=== PATIENT | female | born 1985 | race Native Hawaiian/Other Pacific Islander ===

== ENCOUNTER 2017-01-13 18:43 | Emergency (ER) | payer OTHER ==
[2017-01-13] MEDS ORDERED: Lactated Ringer's 1,000 ML IV SCH (19:45)
[2017-01-13 19:52] VITALS: BMI 26.4
--- NOTE | 2017-01-13 19:59 | OBHP ---
Datetime: 01/13/2017 19:50 IP Adm Impression: , intrauterine IP Chief Complaint Other: cramping Admit Comment, IP Provider: at 35+weeks twins came with c/o cramping from the morning and back pain. pt c/o difficulty urination. obhx primi pmh denies med pnv all nkda psh de soch den ve closed a/p at 35+weeks r/o uti r/o ctxs ua npo/ivf cont woody and efm cont close observation Pelvic Type - PN: Adequate Extremities - PN: Normal Abdomen - PN: Normal Back - PN: Normal Breast - PN: Normal Lungs - PN: Normal Heart - PN: Normal Thyroid - PN: Normal Neurologic - PN: Normal HEENT - PN: Normal General - PN: Normal Contraction Comments Provider: occ Comments, ACOG Physical Exam: gravid,non tender ext no edema,no calf ten ve closed/th/-3 Vital Signs Provider: Reviewed; Within Normal Limits Dilatation, Provider: 0 Effacement, Provider: 0 Station, Provider: -3 Genitourinary Exam: Normal DTRs - PN: Normal
[2017-01-13 20:18] LABS: URINE BILIRUBIN NEGATIVE (NEGATIVE); URINE BLOOD NEGATIVE (NEGATIVE); URINE COLOR Colorless (YELLOW); URINE GLUCOSE (UA) NORMAL (Normal); URINE KETONE NEGATIVE (NEGATIVE); URINE LEUKOCYTE ESTERASE NEG Leu/uL (Negative); URINE PROTEIN NEGATIVE (NEGATIVE); URINE UROBILINOGEN NORMAL mg/dL (0.2-1.0); WBC URINE < 1 /hpf (0-5)
--- NOTE | 2017-01-13 20:26 | OBHP ---
Datetime: 01/13/2017 19:50 Admit Comment, IP Provider: at 35+weeks twins came with c/o cramping from the morning and back pain. pt c/o difficulty urination. obhx primi pmh denies med pnv all nkda psh de soch den ve closed a/p at 35+weeks r/o uti r/o ctxs ua npo/ivf cont woody and efm cont close observation 20.30 ua neg ve closed iv hyration given plan dc home ptl gven po hyration f/u in [facility] in 2-3 days
--- NOTE | 2017-01-13 20:28 | OBDCSUM ---
Datetime: 01/13/2017 20:24 Discharged to, Provider: Home Follow up at, Provider: 2-3 Disch Instr Diet: Regular Follow up in weeks, Provider: clinic Disch Activity Restrictions: Nothing in vagina - [place], tampons, douche Discharge Comment, Provider: plan dc home ptl gven po hyration f/u in [facility] in 2-3 days Discharge Diagnosis Prov Other: 36weeks ctxs nst
[2017-01-14 00:56] VITALS: BP 113/73; PULSE 86; TEMP 98.3
== END 2017-01-13 20:54 | disposition home or self-care (01) ==
LOC: C.EROB 18:43
DX: O26.893 Other specified pregnancy related conditions, third trimester (principal); Z3A.35 35 weeks gestation of pregnancy
CPT/HCPCS: 81001; 99283; J7120

== ENCOUNTER 2017-01-19 15:15 | Emergency (ER) | payer OTHER ==
--- NOTE | 2017-01-19 16:30 | OBHP ---
Datetime: 01/19/2017 16:17 IP Adm Impression: , intrauterine ; No Active Labor IP Chief Complaint Other: Pelvic pressure IP Adm Impression Other: Twin IP Admit Plan: Observation/Evaluation; Discharge home Admit Comment, IP Provider: 31yo with twin at 36wks. She reports here today c/o pelvi c pressure. She denies any VB or LOF. TOCO- Occasional FHR- Category 1, Cx- 0/0/-3 Assessment: Twin at 36wks Pelvic Pressure NST- Reactive. Plan: D/c Home F/U with OB Clinic. Labor instructions given Pelvic Type - PN: Adequate Extremities - PN: Normal Abdomen - PN: Normal Back - PN: Normal Breast - PN: Normal Lungs - PN: Normal Heart - PN: Normal Thyroid - PN: Normal Neurologic - PN: Normal HEENT - PN: Normal General - PN: Normal Presentation-Admit: vertex/vertex FHR - Baseline A Provider: 132/142 Membranes, Provider: Intact Contraction Comments Provider: Occasional Gestation - Est Wks by US: 36.0 EGA AdmitDate IP: 36.3 Vital Signs Provider: Reviewed IP Chief Complaint: Maternal discomfort NICHD Variability Prov Fetus A: Moderate 6-25bpm NICHD Accel Fetus A IP Provider: 15X15 FHR Category Provider Fetus A: Category I NICHD Decel Fetus A IP Provider: None Dilatation, Provider: 0 Effacement, Provider: 0 Station, Provider: -3 Genitourinary Exam: Normal DTRs - PN: Normal
[2017-01-20 00:31] VITALS: BP 115/84; PULSE 97; RESP 18; TEMP 97.2; O2SAT 98
== END 2017-01-19 16:05 | disposition home or self-care (01) ==
LOC: C.EROB 15:15
DX: O26.893 Other specified pregnancy related conditions, third trimester (principal); R10.2 Pelvic and perineal pain; Z3A.36 36 weeks gestation of pregnancy

== ENCOUNTER 2017-01-20 18:56 | Emergency (ER) | payer OTHER ==
--- NOTE | 2017-01-20 20:55 | OBHP ---
Datetime: 01/20/2017 20:21 IP Adm Impression: , intrauterine IP Chief Complaint Other: Frequent urination IP Adm Impression Other: Twin gestation IP Admit Plan: Discharge home Admit Comment, IP Provider: 31 y.o. , LMP 05/09/16, YAYO 02/13/17, EGA 36w 4d confirmed by sono 08/06/16 at 13w 4d, twin gestation (di/di); presents with maternal c/o frequent urination " I pee small a sandra every 10 minutes". "I've been holding it since this morning". (+) AFM x 2; denies LOF, VB, c tx. course: [facility] - Di/Di twin gestation. Transient hyperthyroid in first trimestre; resolv ed in second trimestre - never placed on meds. Normal ECHO x 2. Abnormal GCT 156; normal 3 hr G TT 86/166/130/142. Anemic - not on iron. 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 x 3 years. 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 Fam Hx: Mother alive 60 y.o. Father alive 66 y.o. both; no med issues. No known fam h/o cancer P.E.: as above. Mildly obese in discomfort, NAD. Awake, alert, oriented to time, person and plac e. Assessment: 31 y.o. P0, twin gestation. Once in Ob-ED, patient voided approx 25 cc, water-like paul ar urine. Asher catheterization performed to check post void residual (PVR): 10 cc obtained. For dura tion of Ob-ED evaluation, Asher was left in situ - total volume 200cc over 1.25 hours. Patient had s ensation to have a bowel movement: no evacuation. Category 1 tracing x 2 (the one deceleration noted for Fetus B - baseline 140 bpm was at time of insertion of catheter, positional; did not recur). Fe gretchen presentation is ceph/ceph. Patient desires vaginal delivery. To this end, options discussed inc luded: leave Asher in situ overnight - patient has appointment at 0900 hours 01/21/17 Mary malave - she desires to change her OB provider. At time of visit, Asher can be removed and further manag ement determined. Patient very reluctant to having indwelling Asher overnight. Patient insists that she is able to void, it's just very frequent and in small amounts, and bothersome. Patient was reass ured that in light of no significant PVR, there is no urinary retention, and what she is experiencing is the result of the multi- gestation. Patient in better spirits. Patient is clinically stabl e. Plan: 1) Discharge home 2) Reviewed S/S labor Pelvic Type - PN: Adequate Extremities - PN: Normal Abdomen - PN: Normal Breast - PN: Not Done Lungs - PN: Normal Heart - PN: Normal Thyroid - PN: Normal Neurologic - PN: Normal HEENT - PN: Normal General - PN: Normal Presentation- Admit Other: Vertex Presentation-Admit: Vertex FHR - Baseline A Provider: 140 Contraction Comments Provider: irregular Comments, ACOG Physical Exam: Abdomen: gravid. Soft. Extremities: 2+ pitting pedal edema bilaterally All other systems reviewed and are negative Gestation - Est Wks by US: 36w 4d IP Hx Assessment: The History has been Reviewed and is Current EGA AdmitDate IP: 36.4 IP Chief Complaint: Maternal discomfort NICHD Variability Prov Fetus A: Moderate 6-25bpm NICHD Accel Fetus A IP Provider: 15X15 FHR Category Provider Fetus A: Category I NICHD Decel Fetus A IP Provider: None Dilatation, Provider: 2 Effacement, Provider: 30 Station, Provider: -1 Genitourinary Exam: Normal DTRs - PN: Not Done
[2017-01-21 00:55] VITALS: BP 113/70; PULSE 99; TEMP 97
== END 2017-01-20 20:40 | disposition home or self-care (01) ==
LOC: C.EROB 18:56
DX: O26.893 Other specified pregnancy related conditions, third trimester (principal); R35.0 Frequency of micturition; Z3A.36 36 weeks gestation of pregnancy; O30.003 Twin pregnancy, unspecified number of placenta and unspecified number of amniotic sacs, third trimester

== ENCOUNTER 2017-01-21 10:44 | Inpatient (IN) | payer OTHER ==
[2017-01-21] MEDS ORDERED: Sodium Citrate/Citric Acid 15 ml Sol PO ONE (11:23)
[2017-01-21] MEDS ORDERED: cefOXitin IV 2 gm in Dextrose 2 GM/50 ML BAG IVPB ONE ×2 (11:23→12:02)
[2017-01-21] MEDS ORDERED: Lactated Ringer's 1,000 ML IV SCH (11:30)
--- NOTE | 2017-01-21 11:49 | OBADHP ---
Datetime: 01/21/2017 11:35 Admit Comment, IP Provider: chief compaint-contractions HPI 31 y.o. , LMP 05/09/16, YAYO 02/13/17, EGA 36w 5d confirmed by sono 08/06/16 at 13w 4d, twin g estation (di/di); presents with c/o contractions.states that she has had discomfort since the morning .Was seen by dr gorman initially and found to be 3-4 cm dilated and hnece transferred to [facility]. (+) AFM x 2; denies LOF, VB, ctx. course: [facility] - Di/Di twin gestation. Transient hyperthyroid in first trimestre; resolve d in second trimestre - never placed on meds. Normal ECHO x 2. Abnormal GCT 156; normal 3 hr GT T 86/166/130/142. Anemic - not on iron. 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 x 3 years. 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 Fam Hx: Mother alive 60 y.o. Father alive 66 y.o. both; no med issues. No known fam h/o cancer P.E.: as above. Mildly obese in discomfort, NAD. Awake, alert, oriented to time, person and plac e. FHT cat1 for both twin a and b Bedside scan -baby A vertex; baby B oblique with head in right lower quadrant Assessment: 31 y.o. at 36.5 wga with twin gestation in labor.Discussed with patient about the position of the twins.,discussed trial of labor versus elective primary csection for twins.Discussed possibility of emegrent csection with trial of labor especially with the presentation of baby b bein goblique.risks and benefits of ecah discussed with patient and her family in detail.Patient desires t o proceed with csection . -admit -see orders Pelvic Type - PN: Adequate Extremities - PN: Normal Abdomen - PN: Normal Back - PN: Normal Lungs - PN: Normal Heart - PN: Normal Neurologic - PN: Normal General - PN: Normal Presentation-Admit: vtx/oblique Contraction Comments Provider: irregular Gestation - Est Wks by US: 36.5 IP Hx Assessment: The History has been Reviewed and is Current Vital Signs Provider: Reviewed IP Chief Complaint: Uterine contractions FHR Category Provider Fetus A: cat 1 Dilatation, Provider: 3-4 Effacement, Provider: 80 Station, Provider: -2 Genitourinary Exam: Normal DTRs - PN: Normal EGA AdmitDate IP: 36.5 IP Adm Impression: , intrauterine ; Active labor IP Admit Plan: Admit to unit; Initiate Section protocol Datetime: 01/20/2017 20:21 IP Chief Complaint Other: Frequent urination IP Adm Impression Other: Twin gestation Breast - PN: Not Done Thyroid - PN: Normal HEENT - PN: Normal Presentation- Admit Other: Vertex FHR - Baseline A Provider: 140 Comments, ACOG Physical Exam: Abdomen: gravid. Soft. Extremities: 2+ pitting pedal edema bilaterally All other systems reviewed and are negative NICHD Variability Prov Fetus A: Moderate 6-25bpm NICHD Accel Fetus A IP Provider: 15X15 NICHD Decel Fetus A IP Provider: None Datetime: 01/19/2017 16:17 Membranes, Provider: Intact
[2017-01-21 11:51] LABS: BASO % 0.6 % (0.0-2.0); EOS % 0.1 % (0.0-4.0); HEMATOCRIT 27.5 % (34.0-47.0); LYMPH # 1.6 K/uL (1.0-4.3); LYMPH % 21.9 % (20.0-40.0); MEAN CELL VOLUME 74.4 fL (81.0-99.0); MEAN CORPUSCULAR HEMOGLOBIN 24.1 pg (27.0-31.0); MEAN CORPUSCULAR HGB CONC 32.4 g/dL (33.0-37.0); MEAN PLATELET VOLUME 7.7 fL (7.2-11.7); MONO # 0.4 K/uL (0.0-0.8); NRBC % 0.2 % (0.0-2.0); RED CELL DISTRIBUTION WIDTH 16.6 % (11.5-14.5); WHITE BLOOD COUNT 7.5 K/uL (4.8-10.8)
[2017-01-21 11:54] LABS: RBC URINE 2 /hpf (0-3); URINE BACTERIA MANY (<OCC); URINE BILIRUBIN NEGATIVE (NEGATIVE); URINE BLOOD 3+ (NEGATIVE); URINE COLOR Yellow (YELLOW); URINE GLUCOSE (UA) NORMAL (Normal); URINE KETONE NEGATIVE (NEGATIVE); URINE LEUKOCYTE ESTERASE 3+ Leu/uL (Negative); URINE PROTEIN NEGATIVE (NEGATIVE); URINE UROBILINOGEN NORMAL mg/dL (0.2-1.0); WBC URINE 15 /hpf (0-5)
[2017-01-21] MEDS ORDERED: Sodium Citrate/Citric Acid 15 ml Sol ONE (12:02)
[2017-01-21] MEDS ORDERED: Oxytocin 20 units in LR 2,000 ML IV ONE (12:03)
[2017-01-21] MEDS ORDERED: Morphine 1 mg/ml preservative-free Inj(Duramorph) ONE (12:15)
[2017-01-21 12:20] LABS: CHLORIDE 104 mmol/L (98-107); SODIUM 136 mmol/L (132-148)
[2017-01-21 12:22] LABS: BILIRUBIN,TOTAL 0.5 mg/dL (0.2-1.3); CARBON DIOXIDE 15 mmol/L (22-30); GFR AFRICAN-AMERICAN > 60
[2017-01-21 12:23] LABS: ALKALINE PHOSPHATASE 199 U/L (38-126); ALT/SGPT 26 U/L (9-52); AST/SGOT 23 U/L (14-36); BLOOD UREA NITROGEN 6 mg/dL (7-17); CALCIUM 9.4 mg/dl (8.6-10.4); GLUCOSE,RANDOM 69 mg/dL (65-105); TOTAL PROTEIN 6.2 g/dL (6.3-8.3)
[2017-01-21] MEDS ORDERED: Midazolam 2 MG/2 ML VIAL ONE ×2 (12:43→12:51)
[2017-01-21] MEDS ORDERED: Ketamine 50 mg/ml Inj (10 ml) ONE (12:57)
[2017-01-21] MEDS ORDERED: HYDROmorphone 0.5 mg/0.5 ml ISec IVP PRN ×2 (13:05→15:30)
[2017-01-21] MEDS ORDERED: DiphenhydrAMINE 50 mg/ml Inj IVP PRN (13:07)
[2017-01-21] MEDS ORDERED: Dexamethasone 4 mg/1 ml IVP PRN (13:39)
[2017-01-21] MEDS ORDERED: Oxycodone/Acetaminophen 5/325 mg Tab PO PRN (14:17)
--- NOTE | 2017-01-21 22:27 | OBDS ---
DELIVERY PERSONNEL Delivery Doctor: dr carlos Cedillo Nurse: Lisbeth tOero Skate Hop: Joshua Wayne RN Anesthesiologist: Aleksey Bansal MD MATERNAL INFORMATION Delivery Anesthesia: Spinal Medications in Delivery: pitocin 20 Estimated Blood Loss (ml): 700 Placenta Cultured: Yes Maternal Complications: Other Other Maternal Complications: twin Provider Comments: primary csection done ebl 700cc delivered a viable female infant and viable male infant fundal pedunculated fibroid noticed approx 3x5 cm size LABOR SUMMARY EDC: 02/13/2017 00:00 No. Babies in Womb: 2 Attempted: No Labor Anesthesia: None LABOR INFORMATION Onset of Labor: 01/21/2017 08:00 Oxytocin: N/A Group B Beta Strep: Negative Antibiotics # of Doses: 1 Antibiotics Time of Last Dose: 1200 Steroids Given: None Reason Steroids Not Administered: Not Applicable MEMBRANES Membranes Rupture Method: Artificial Rupture of Membranes: 01/21/2017 12:44 Length of Rupture (hrs): 0.02 Amniotic Fluid Color: Clear Amniotic Fluid Amount: Moderate Amniotic Fluid Odor: Normal STAGES OF LABOR Stage 3 hrs: 0 Stage 3 min: 1 Total Time in Labor hrs: 4 Total Time in Labor min: 46 VAGINAL DELIVERY Episiotomy: None Laceration Extension: N/A CSECTION DELIVERY Primary Indication: Multiple Gestation CSection Urgency: Emergency CSection Incidence: Primary Labor: Labor CSection Incision: Lower Uterine Transverse Uterine Closure: Double-layer closure BABY A INFORMATION Infant Delivery Date/Time: 01/21/2017 12:45 Method of Delivery: Born in Route : No : N/A Forceps: N/A Vacuum Extraction: N/A Shoulder Dystocia : No SHOULDER DYSTOCIA BABY A Infant Delivery Date/Time: 01/21/2017 12:45 PRESENTATION/POSITION BABY A Presentation: Cephalic Cephalic Presentation: Vertex Breech Presentation: N/A PLACENTA INFORMATION BABY A Placenta Delivery Time : 01/21/2017 12:46 Placenta Method of Delivery: Manual Removal Placenta Status: Delivered SCORES BABY A Heart Rate 1 min: >100 bpm Resp Effort 1 min: Good Cry Reflex Irritability 1 min: Cough or Sneeze or Pulls Away Muscle Tone 1 min: Active Motion Color 1 min: Body Thorofare, Extremities Blue Resuscitation Effort 1 min: Tactile Stimulation SCORE 1 MIN: 9 Heart Rate 5 min: >100 bpm Resp Effort 5 min: Good Cry Reflex Irritability 5 min: Cough or Sneeze or Pulls Away Muscle Tone 5 min: Active Motion Color 5 min: Body Thorofare, Extremities Blue SCORE 5 MIN: 9 INFANT INFORMATION BABY A Gestational Age at Delivery: 36.5 Gestational Status: Infant Outcome : Liveborn Condition : Stable Sex: Male IDENTIFICATION/MEDS BABY A ID Band Number: [id number] ID Band Location: Left Leg; Left Arm Sensor Applied: Yes Sensor Number: [id number] Sensor Location : Cord Clamp WEIGHT/LENGTH BABY A Birthweight (gms): 2270 Weight (lb): 5 Weight (oz): 0 Length Inches: 18.25 Infant Length cms: 46.4 CORD INFORMATION BABY A No. Cord Vessels: 3 Nuchal Cord : Around Neck x2, Loose Cord Blood Taken: Yes Infant Suction: Mouth; Nose ASSESSMENT BABY A Infant Complications: None Physical Findings at Delivery: Within Normal Limits Respirations: Appears Normal Benefits Representative/ALS Called : No Care By: dr jacobson Transferred To: [facility] BABY B INFORMATION Infant Delivery Date/Time: 01/21/2017 12:46 Method of Delivery : Born in Route : No : N/A Forceps : N/A Vacuum Extraction: N/A Shoulder Dystocia : No SHOULDER DYSTOCIA BABY B Infant Delivery Date/Time: 01/21/2017 12:46 PRESENTATION/POSITION BABY B Presentation : Cephalic Cephalic Position : Vertex Vertex Position: Left Occipital Anterior Breech Position: N/A ROM/PLACENTA INFO BABY B Rupture of Membranes: 01/21/2017 12:44 Length of Rupture (hrs): 0.03 Placenta Delivery Time : 01/21/2017 12:45 Placenta Method of Delivery: Manual Removal Placental Status : Delivered SCORES BABY B Heart Rate 1 min: >100 bpm Resp Effort 1 min: Good Cry Reflex Irritability 1 min: Cough or Sneeze or Pulls Away Muscle Tone 1 min: Active Motion Color 1 min: Body Thorofare, Extremities Blue Resuscitation Effort 1 min: Tactile Stimulation SCORE 1 MIN: 9 Heart Rate 5 min: >100 bpm Resp Effort 5 min: Good Cry Reflex Irritability 5 min: Cough or Sneeze or Pulls Away Muscle Tone 5 min: Active Motion Color 5 min: Body Thorofare, Extremities Blue SCORE 5 MIN: 9 INFANT INFORMATION BABY B Gestational Age at Delivery: 36.5 Gestational Status : Outcome : Liveborn Condition : Stable Sex : Female IDENTIFICATION/MEDS BABY B ID Band Number : [id number] ID Band Location : Left Leg; Left Arm Sensor Applied: Yes Sensor Number : [id number] Sensor Location : Left Leg; Left Arm WEIGHT/LENGTH BABY B Birthweight (gms): 2045 Infant Weight (lb) : 4 Infant Weight (oz): 8 Infant Length Inches: 17.50 Length cms: 44.45 CORD INFORMATION BABY B No. Cord Vessels : 3 Nuchal Cord : Around Neck x1, Loose Cord Blood Taken : Yes Suction : None; Mouth ASSESSMENT BABY B Infant Complications : None Physical Findings at Delivery: Within Normal Limits Respirations : Appears Normal Benefits Representative/ALS Called : No Care By : dr jacobson Transfer To: Nursery
--- NOTE | 2017-01-22 07:16 | OBPPN ---
Datetime: 01/22/2017 07:15 PP Pain Prov: Within normal limits PP Nausea Prov: Denies PP Flatus Prov: No PP Abdomen/Uterus Prov: Normal PP Lochia Prov: Normal PP Extremities Prov: Normal PP Comments Phys Exam Prov: fudus below umb ext mild edema,no calf ten dressing clean and dry PP Impression Prov: Normal progression PP Plan Prov: Continue present management PP Progress Note Prov: t was seen at bed side, pain under control,no n/v, waiting to void,min lochia , flatus - pod#1s/p c/s cbc advance deit as tolerated cont pain mamagement cont post op care encourage ambulation Vital Signs Provider PP: Reviewed; Within Normal Limits
[2017-01-22 07:38] LABS: BASO % 0.3 % (0.0-2.0); HEMATOCRIT 23.2 % (34.0-47.0); LYMPH # 1.4 K/uL (1.0-4.3); LYMPH % 10.5 % (20.0-40.0); MEAN CELL VOLUME 74.3 fL (81.0-99.0); MEAN CORPUSCULAR HEMOGLOBIN 23.2 pg (27.0-31.0); MEAN CORPUSCULAR HGB CONC 31.3 g/dL (33.0-37.0); MEAN PLATELET VOLUME 7.2 fL (7.2-11.7); MONO # 0.7 K/uL (0.0-0.8); MONO % 5.4 % (0.0-10.0); NRBC % 0.2 % (0.0-2.0); RED CELL DISTRIBUTION WIDTH 17.1 % (11.5-14.5)
[2017-01-22 07:46] LABS: WHITE BLOOD COUNT 13.5 K/uL (4.8-10.8)
[2017-01-22] MEDS: Oxycodone/Acetaminophen 5/325 mg Tab PO PRN ×3 (10:11→21:11)
[2017-01-22] MEDS: Prenatal Multivit/Folic Acid/Iron Tab PO SCH (10:12)
[2017-01-22] MEDS: Simethicone 80 mg Chewtab PO SCH ×3 (10:14→17:59)
--- NOTE | 2017-01-22 14:01 | OP ---
PROCEDURE DATE: 01/21/2017 PREOPERATIVE DIAGNOSIS: Twin gestation, vertex and oblique. POSTOPERATIVE DIAGNOSIS: Twin gestation, vertex and oblique. PROCEDURE PERFORMED: Primary low-transverse section. SURGEON: Dano Watson MD. MULTICULTURAL INTERNSHIP: Lc Gu MD Please note that the procedure required a surgical processor to assist with the entering to the abdominal cavity, to assist with the delivery of the infant, and to assist with the closure of the abdominal wall. The surgical processor was present and scrubbed for the entire duration of the procedure. ANESTHESIA: Spinal. ANESTHESIOLOGIST: Dr. Bansal COMPLICATIONS: None. ESTIMATED BLOOD LOSS: 700 mL. FINDINGS: Viable male in vertex presentation which was baby A with nuchal cord and baby B being oblique delivered with compound presentation, also with a nuchal cord. Normal-appearing uterus, tubes, and ovaries. A 5 x 3 cm pedunculated left fundal fibroid. SPECIMEN: Placenta and cord blood. Apgars for baby A that is baby boy being 9 in 1 minute and 9 in 5 minutes of life. Apgars for baby B which is a girl also 9 in 1 minute of life and 9 in 5 minutes of life. PROCEDURE IN DETAIL: After informed consent was obtained, the patient was taken to the operating room where spinal anesthesia was administered by the anesthesia team. She was therefore placed in dorsal supine position with a leftward tilt. The Asher catheter was confirmed to be draining clear urine. She was then prepped and draped in the usual sterile manner. A Pfannenstiel skin incision was then made with a scalpel and carried down to the underlying layer of the fascia with the help of the Bovie. The fascia was then incised in the midline incision and extended laterally with the help of a Bovie as well. The superior aspect of the fascial incision was then grasped with James clamp to elevate it and the underlying rectus muscle was dissected off. Attention was then turned to the inferior aspect of the fascial incision which, in a similar fashion, was grasped with James clamp to elevate it and the underlying rectus muscle was dissected off. The rectus muscle was in the midline. The peritoneum was picked up with hemostat and clamps and entered sharply with Metzenbaum scissors. The peritoneal incision was extended superiorly and inferiorly with good visualization of the bladder. The bladder blade was then inserted and the peritoneum was identified. A transverse incision was made over the __vesicouterine peritoneum___ with the help of Metzenbaum scissors, and this incision extended laterally and the bladder flap was created sharply. The bladder blade was then reinserted and the lower uterine segment was identified. A transverse incision was made over the lower uterine segment with the help of a __fresh___ scalpel. A hysterotomy was bluntly stretched. The sac for baby A was ruptured and clear amniotic fluid was noted. The was delivered from vertex presentation. Nuchal x2 around neck was found, which was reduced and then the body and the shoulders were delivered. The nose and the mouth were suctioned and the cord was then clamped and cut. The infant was handed over to the waiting acquisition advisor. The segment of the cord was taken for cord blood pH. Next, the sac for the baby B was ruptured. It was noted to be compound presentation. The head was facilitated out of the right lower quadrant and after the head, the left arm was delivered followed by with the nuchal x1 neck was found which was reduced, and the body and the shoulders thereafter delivered. The cord was then clamped and cut and the nose and mouth were suctioned. The was handed over to the awaiting acquisition advisor. The segment of the cord was taken for cord blood pH. Cord blood was collected separately for baby A and baby B. The placenta was then manually removed and the uterus was exteriorized and cleared of all clots and debris. The uterine incision was repaired with 0 Polysorb in a running locked fashion. A second layer of #0 Monocryl was used to imbricate the first layer and also to obtain hemostasis. Adequate hemostasis was noted from the uterine incision at the repair site. The uterus was thereafter returned to the patient's abdomen and gutters were cleaned and suctioned. Please note that approximately 5 x 3 cm left fundal fibroid was noted. This was pedunculated in nature. The hysterotomy was inspected for hemostasis and adequate hemostasis was noted. The bladder flap was inspected for hemostasis and adequate hemostasis was noted from it as well. The peritoneum was thereafter closed with 2-0 Polysorb in a running fashion. The rectus muscle was approximated with 2- 0 Polysorb in a running fashion. The fascia was closed with #0 Vicryl in a running fashion. The subcuticular tissue was re-approximated with 2-0 Polysorb in a continuous manner. The skin was thereafter closed with 3-0 Monocryl in a subcuticular manner. The sponge, lap, needle, and instrument count was correct x3 and reported to me. The patient tolerated the procedure well. The patient was thereafter cleaned and taken to the recovery room in stable condition. The specimen, placenta, and cord blood was sent to pathology. Please note that the findings of the left fundal fibroid was communicated to the patient's family as well as the patient in the recovery area and the patient was advised to have a pelvic and a transvaginal ultrasound done after six weeks . Dano Watson MD MTDD
[2017-01-22] MEDS ORDERED: Bisacodyl 5mg EC Tab PO ONE ×2 (14:20→18:00)
[2017-01-22 14:31] LABS: HEMATOCRIT 21.5 % (34.0-47.0); MEAN CELL VOLUME 74.5 fL (81.0-99.0); MEAN CORPUSCULAR HEMOGLOBIN 23.4 pg (27.0-31.0); MEAN CORPUSCULAR HGB CONC 31.5 g/dL (33.0-37.0); MEAN PLATELET VOLUME 7.3 fL (7.2-11.7); RED CELL DISTRIBUTION WIDTH 16.8 % (11.5-14.5); WHITE BLOOD COUNT 13.6 K/uL (4.8-10.8)
--- NOTE | 2017-01-22 15:39 | OBPPN ---
Datetime: 01/22/2017 15:33 PP Pain Prov: Within normal limits PP Nausea Prov: Denies PP Flatus Prov: No PP Abdomen/Uterus Prov: Normal PP Lochia Prov: Normal PP Extremities Prov: Normal PP C/S Incision Prov: Normal PP Comments Phys Exam Prov: fudus below umblicus ext mild edema,no calf ten dressing clean and dry PP Impression Other Prov: chronic anemia PP Progress Note Prov: pt was seen at bed side. no sob no chest pain, pain under control, no n/v, to lerating deit, min lochia chest cta b/l cvs tachy h/h decreased a/ s/p c/s chronic anemia blood transusion recommed. pt refused. r/a/b discussed cbc in am ferrous sulfate tid cont close observaton Vital Signs Provider PP: Reviewed
[2017-01-23 07:54] LABS: BASO % 0.3 % (0.0-2.0); EOS % 0.2 % (0.0-4.0); HEMATOCRIT 19.5 % (34.0-47.0); LYMPH # 1.4 K/uL (1.0-4.3); LYMPH % 11.6 % (20.0-40.0); MEAN CELL VOLUME 74.3 fL (81.0-99.0); MEAN CORPUSCULAR HEMOGLOBIN 23.7 pg (27.0-31.0); MEAN CORPUSCULAR HGB CONC 31.9 g/dL (33.0-37.0); MEAN PLATELET VOLUME 7.5 fL (7.2-11.7); MONO # 0.6 K/uL (0.0-0.8); MONO % 4.8 % (0.0-10.0); NRBC % 0.1 % (0.0-2.0); RED CELL DISTRIBUTION WIDTH 16.9 % (11.5-14.5)
[2017-01-23 08:38] VITALS: O2SAT 98
[2017-01-23] MEDS: Prenatal Multivit/Folic Acid/Iron Tab PO SCH (09:17)
[2017-01-23] MEDS: Simethicone 80 mg Chewtab PO SCH ×4 (09:18→21:31)
[2017-01-23] MEDS: Oxycodone/Acetaminophen 5/325 mg Tab PO PRN (17:11)
[2017-01-23] MEDS ORDERED: Magnesium Hydroxide Susp 30 ml UD PO ONE ×2 (17:15→18:30)
--- NOTE | 2017-01-23 23:33 | OBPPN ---
Datetime: 01/23/2017 23:16 PP Pain Prov: Within normal limits PP Nausea Prov: Denies PP Flatus Prov: No PP BM Prov: No PP Breasts Prov: Not Done PP Heart Prov: Normal PP Lungs Prov: Normal PP Abdomen/Uterus Prov: Normal PP Lochia Prov: Normal PP Vulva/Perineum Prov: Not Done PP CVA Tenderness Prov: Normal PP Extremities Prov: Normal PP C/S Incision Prov: Normal PP Progress Prov: Not Applicable PP Comments Phys Exam Prov: Abdomen: (+) BS. Softly distended. Fundus firm, mobile, mildly and appr opriately tender, 1 FB below umbilicus. Incision with subcuticular closure clean, dry intact. Mild l ochia rubra. Extremities: (+) pedal edema bilaterally, no calf tenderness All other systems reviewed and are negative PP Progress Note Prov: Patient seen and evaluated at approximately 0845 hours; received in bathroom in room 459. Not really . Not really ambulating. Reports pain scale 8/10 - relieved wi th pain meds. Denies nausea, vomiting; voiding without difficulty. P.E.: as above. Small, in NAD. Awake, alert, oriented to time, person and place. 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 repeat today, POD#2 6.2/19.5 Assessment: POD#2, 31 y.o. P1002, S/P primary LTCS for twin gestation. Afebrile, vital signs stab le. Returing and GI functions. Patient encouraged to ambulate more, out of her room and in the gutierres llways. Patient refusing blood transfusion: refusal was initialized 01/22/17 and reiterated today. Rogelio isaacs otherwise in stable condition. Clinically stable. Plan: 1) continue present management 2) Walk in hallways 3) Continue iron, TID 4) Anticipate discharge home 01/24/17 Vital Signs Provider PP: Reviewed; Within Normal Limits
[2017-01-24] MEDS: Oxycodone/Acetaminophen 5/325 mg Tab PO PRN (00:28)
[2017-01-24 08:22] VITALS: BP 104/65; PULSE 84; RESP 18; TEMP 98.6
[2017-01-24] MEDS: Prenatal Multivit/Folic Acid/Iron Tab PO SCH (09:58)
[2017-01-24] MEDS: Simethicone 80 mg Chewtab PO SCH (09:58)
[2017-01-24 11:43] LABS: BASO % 0.3 % (0.0-2.0); EOS # 0.1 K/uL (0.0-0.7); EOS % 0.7 % (0.0-4.0); HEMATOCRIT 19.3 % (34.0-47.0); LYMPH # 1.5 K/uL (1.0-4.3); LYMPH % 11.4 % (20.0-40.0); MEAN CELL VOLUME 73.7 fL (81.0-99.0); MEAN CORPUSCULAR HEMOGLOBIN 23.7 pg (27.0-31.0); MEAN CORPUSCULAR HGB CONC 32.2 g/dL (33.0-37.0); MEAN PLATELET VOLUME 7.1 fL (7.2-11.7); MONO # 0.6 K/uL (0.0-0.8); MONO % 4.9 % (0.0-10.0); NRBC % 0.1 % (0.0-2.0); RED CELL DISTRIBUTION WIDTH 17.2 % (11.5-14.5); WHITE BLOOD COUNT 12.7 K/uL (4.8-10.8)
--- NOTE | 2017-01-24 11:43 | OBPPN ---
Datetime: 01/24/2017 11:39 PP Pain Prov: Within normal limits PP Nausea Prov: Denies PP Flatus Prov: Yes PP BM Prov: No PP Breasts Prov: Normal PP Heart Prov: Normal PP Lungs Prov: Normal PP Abdomen/Uterus Prov: Normal PP Lochia Prov: Normal PP Vulva/Perineum Prov: Normal PP CVA Tenderness Prov: Normal PP Extremities Prov: Normal PP C/S Incision Prov: Normal PP Progress Prov: Normal PP Impression Prov: Normal progression PP Plan Prov: Continue present management PP Progress Note Prov: pt seen and examimed and reports pian is controlled with medicatoin. pt is am bauting out of bed, voiding, passing flatus, bresat feeding, denies any lighthtenadd, dizzyness, CP, SOB. Pt refusing blood transfusion, understands r/b/a/i . refuls consnt signed VSS PE see above GEN NAD AANo x 3 REP: CTAB/l CVS: RRR, +S1/S2 BREAST Non tender, non enrogrbe b/l ABD: soft, NT/ND, +BS, no guaridng, no reboudn tendneres,s no rigidy Fundus: Firm, below level of umbilucus INCSIN C/D/I healing well V:E miniml lochai non foul slemming EX:T no calf tendnress b/l, negative homans sign A/P s/p PLTCS POD #3 doing well with acute aysmtomic blood loss anemia refusing intervention reque sting discharge f/u repeat cbc refused hematorlogy/ blood transfuion precautiosn givn beowl regimen anticpiate d/ c today rto / clinci 1 week precautisn given IP PP Procedures: None Vital Signs Provider PP: Reviewed; Within Normal Limits
--- NOTE | 2017-01-24 11:46 | OBDCSUM ---
Datetime: 01/24/2017 07:14 Discharged to, Provider: Home Follow up at, Provider: Clinic Disch Instr Activity: May Shower Disch Instr Diet: Regular Discharge Instructions, Provider: Routine instructions given Discharge Diagnosis, Provider: Term Delivered Discharge Time: 01/24/2017 11:42 Follow up in weeks, Provider: 1 week Disch Referrals: None Contraception discussed, Prov: Yes Disch Activity Restrictions: No sexual activity; Nothing in vagina - [facility], tampons, douche Discharge Comment, Provider: If dizzyness, chest pain, sob, ligtheadness, heavy bleeding more than 1 pad / hour, large clots , pain go to nearest er and call MD Discharge Diagnosis Prov Other: twins , acute blood loss asympoamtic naemia Contraception after Delivery: Not Planning to Use
== END 2017-01-24 18:10 | disposition home or self-care (01) | DRG 650 ==
LOC: C.EROB 10:44 → C.4D 11:22 → C.4M 16:15
PROVIDERS: ADMIT Student in an Organized Health Care Education/Training Program; ATTEND Student in an Organized Health Care Education/Training Program
PROC: 10D00Z1 Extraction of Products of Conception, Low, Open Approach (ICD-10-PCS; principal; 2017-01-21)
DX: O60.14X0 Preterm labor third trimester with preterm delivery third trimester, not applicable or unspecified (principal); D62 Acute posthemorrhagic anemia; Z37.2 Twins, both liveborn; O30.043 Twin pregnancy, dichorionic/diamniotic, third trimester; O99.02 Anemia complicating childbirth; Z3A.36 36 weeks gestation of pregnancy; O32.2XX0 Maternal care for transverse and oblique lie, not applicable or unspecified; O69.81X0 Labor and delivery complicated by cord around neck, without compression, not applicable or unspecified; O99.284 Endocrine, nutritional and metabolic diseases complicating childbirth; O12.04 Gestational edema, complicating childbirth